=== PATIENT | male | born 1995 | race Caucasian/White ===

== ENCOUNTER 2019-01-06 01:30 | Emergency (ER) | payer OTHER ==
[2019-01-06] MEDS: METHOCARBAMOL 750 MG TAB PO (02:36)
[2019-01-06] MEDS: KETOROLAC 30 MG INJ IM (02:36)
== END 2019-01-06 04:20 | disposition home or self-care (01) ==
LOC: FTE 01:30
DX: M54.9 Dorsalgia, unspecified (principal)
CPT/HCPCS: 72100; 96372; 99284-25